=== PATIENT | male | born 1955 | race Caucasian/White ===

== ENCOUNTER 2017-03-10 11:04 | Outpatient (CLI) | payer MEDICAID ==
[~2017-03-10] VITALS: Ht 170.2 cm; Wt 63.6 kg
--- NOTE | ~2017-03-10 | HEMODYNAMI ---
PATIENT:STANISLAV LOMAS MEDICAL RECORD: [id number] : 59 LOCATION:DAilynCAT ADMISSION DATE: 03/10/17 Generatedon:03/10/201713:51 Patient name: STANISLAV LOMAS Patient #: [id number] SSN: : 1955 Date of study: 03/10/2017 Page: Of Hemodynamic Procedure Report Patient Data Patient Demographics Procedure consent was obtained First Name: STANISLAV Gender: Male Last Name: CESILIA : 1955 Patient #: [id number] Age: 61 year(s) Race: Additional ID: [id number] Contact details Address: [facility] [address] State: [place] City: [facility] Zip code: [address] Past Medical History Allergies: No known allergies Admission Admission Data Admission Date: 03/10/2017 Admission Time: 11:04 Procedure Procedure Types Cath Procedure Diagnostic Procedure LHC LHC w/Coronaries PCI Procedure Coronary Stent Initial Miscellaneous Procedures Moderate Sedation up to 30 minutes Procedure Description Procedure Date Procedure Date: 03/10/2017 Procedure Start Time: 13:25 Procedure End Time: 13:51 Procedure Staff Name Function Marshall Mauro MD Performing Physician Valerie Laurent RN Nurse Donny Little RT Monitor Annalisa Gomez RT Scrub Procedure Data Cath Procedure Fluoroscopy Diagnostic fluoroscopy Total fluoroscopy Time: 3.9 time: 3.9 min min Diagnostic fluoroscopy Total fluoroscopy dose: 448 dose: 448 mGy mGy Contrast Material Contrast Material Type Amount (ml) Isovue 300 80 Entry Location Entry Primary Successful Side Size Upsize Upsize Entry Closure Succes sful Closure Location (Fr) 1 (Fr) 2 (Fr) Remarks Device Remarks Femoral Right 5 Fr 6 Fr artery Short Estimated blood loss: 10 ml Diagnostic catheters Device Type Used For End Catheter Placement Cordis 5Fr JL 4.0 Procedure Catheter (MP) Cordis 5Fr 3DRC Catheter Procedure (MP) Cordis 5Fr Pigtail Procedure Catheter (MP) Procedure Complications No complications Procedure Medications Medication Administration Route Dosage Oxygen NC 2 l/min Heparin Flush Bag added to field 2 bags (1000units/500ml NS) Lidocaine 2% added to field 20 Radial Cocktail added to field 1 syringe (Verapomil 2mg/Nitro 400mcg/Heparin 1500units) Versed I.V. 1 mg Fentanyl I.V. 50 mcg Versed I.V. 1 mg Fentanyl I.V. 50 mcg Fentanyl I.V. 50 mcg Heparin Bolus I.V. 4000 units Integrilin (Bolus I.V. 5.6 ml 2mg/ml) Plavix P.O. 600 mg Hemodynamics Rest Heart Rate: 58 (bpm) Pressure Samples Time Site Value (mmHg) Purpose Heart Use Rate(bpm) 13:30 AO 128/67(90) Snapshot 54 13:34 LV 125/8,11 Snapshot 57 13:35 AO 161/60(92) Pullback 58 13:35 LV 129/10,12 Pullback 58 Gradients Valve Time Site 1 Site 2 Mean SEP/DFP Peak To Heart Use (mmHg) (sec/min) Peak Rate (mmHg) (bpm) Aortic 13:35 LV AO 0 8 0 58 129/10,12 161/60(92) Calculations Valve P-P Mean Valve Index Valve Source Name Gradient Area Flow (cm2) Aortic 0 0 0 0 Snapshots Pre Cath Intra NCS Post Cath Vital Signs Time Heart Resp SPO2 etCO2 [id number] NIBP (mmHg) Rhythm Pain Sedation Rate (ipm) (%) (mmHg) (mmHg) Status Level (bpm) 13:12:51 63 20 94 0 0 174/95(144) NSR 0 (11) 10(A) , No pain 13:17:18 60 16 94 0 0 186/77(163) NSR 0 (11) 10(A) , No pain 13:21:44 62 14 100 0 0 166/91(138) NSR 0 (11) 10(A) , No pain 13:26:06 57 16 100 0 0 144/75(117) NSR 0 (11) 9(A) , No pain 13:30:20 56 22 100 0 0 130/75(92) NSR 0 (11) 9(A) , No pain 13:34:30 57 19 100 0 0 128/70(87) NSR 0 (11) 9(A) , No pain 13:38:38 56 20 99 0 0 135/76(101) NSR 0 (11) 9(A) , No pain 13:42:50 59 18 99 0 0 129/72(89) NSR 0 (11) 10(A) , No pain 13:46:54 61 16 100 0 0 145/87(108) NSR 0 (11) 10(A) , No pain Medications Time Medication Route Dose Verified Delivered Reason Note s Effectiveness by by 13:12:02 Oxygen NC 2 l/min Marshall Valerie Per physician St. Lonnie Laurent RN, MD 13:12:10 Heparin Flush added 2 bags Marshall Marshall used for Bag to [facility] procedure (1000units/500ml field MD WELDON NS) 13:12:16 Lidocaine 2% added 20ml Marshall Marshall used for to vial [place] [facility] procedure field MD WELDON 13:12:22 Radial Cocktail added 1 Marshall Marshall used for (Verapomil to syringe [facility] procedure 2mg/Nitro field MD WELDON 400mcg/Heparin 1500units) 13:19:46 Versed I.V. 1 mg Marshall Valerie for sedation St. Lonnie Laurent RN, MD 13:19:52 Fentanyl I.V. 50 mcg Marshall Aaronca for sedation St. Lonnie Laurent RN, MD 13:21:42 Versed I.V. 1 mg Marshall Valerie for sedation St. Lonnie Laurent RN, MD 13:21:51 Fentanyl I.V. 50 mcg Marshall Santosecca for sedation St. Lonnie Laurent RN, MD 13:24:57 Fentanyl I.V. 50 mcg Marshall Aaronca for sedation St. Lonnie Laurent RN, MD 13:37:58 Heparin Bolus I.V. 4000 Marshall Aaronca for dose units St. Lonnie Laurent RN anticoagulation verified MD with dr diaz 13:39:21 Integrilin I.V. 5.6 ml Marshall Santosecca for wast ed (Bolus 2mg/ml) St. Lonnie Laurent RN antiplatelet 4.4 ml MD therapy 13:46:26 Plavix P.O. 600 mg Marshall Valerie for St. Lonnie Laurent RN antiplatelet therapy Procedure Log Time Note 12:45:23 Valerie Laurent RN sent for patient. Start room use. 12:46:14 Informed consent obtained and on chart 12:46:44 Diagnostic Cath status Elective 13:03:34 Time tracking: Regular hours 13:03:38 Plan of Care:Hemodynamics will remain stable., Cardiac rhythm will remain stable., Comfort level will be maintained., Respiratory function will remain adequate., Patient/ family verbilizes understanding of procedure., Procedure tolerated without complication., Recovers from procedure without complications.. 13:06:26 Patient received from Pre/Post Procedure Room to CCL 1 Alert and oriented. Tansferred to table in Supine position. 13:06:33 Patient arrived from Pre/Post Procedure Room to CCL 1. Patient remains on bed/stretcher for procedure. 13:06:35 Warm blankets applied, and raoul hugger turned on for patient comfort. 13:06:36 Correct patient and procedure confirmed by team. 13:11:00 ECG and BP/O2 sat monitors applied to patient. 13:11:46 Vital chart was started 13:12:02 Oxygen 2 l/min NC was administered by Valerie Laurent RN; Per physician; 13:12:10 Heparin Flush Bag (1000units/500ml NS) 2 bags added to field was administered by Marshall Mauro MD; used for procedure; 13:12:16 Lidocaine 2% 20ml vial added to field was administered by Marshall Mauro MD; used for procedure; 13:12:22 Radial Cocktail (Verapomil 2mg/Nitro 400mcg/Heparin 1500units) 1 syringe added to field was administered by Marshall Mauro MD; used for procedure; 13:17:10 Baseline sample Acquired. 13:17:15 Rhythm: sinus bradycardia 13:17:17 Full Disclosure recording started 13:17:34 H&P Date Dictated: 02/16/2017 Within 30 days and on chart., H&P Addendum completed by physician on day of procedure. (MUST COMPLETE FOR ALL OUTPATIENTS). 13:17:35 Pre-procedure instructions explained to patient. 13:17:35 Pre-op teaching completed and patient verbalized understanding. 13:17:37 Family in waiting room. 13:17:40 Patient NPO since Midnight. 13:17:41 Is the patient allergic to Iodine/contrast media? No. 13:17:45 Is patient on blood thinner?No 13:17:48 Patient diabetic? No. 13:17:50 Previous problem with sedation/anesthesia? No ? 13:18:30 Snore? Yes 13:18:31 Sleep apnea? No 13:18:32 Deviated septum? No 13:18:33 Opens mouth fully? Yes 13:18:33 Sticks out tongue? Yes 13:18:43 Airway obstruction? No ? 13:18:49 Dentures? Yes IN 13:18:55 Pre procedure: right dorsailis pedis pulse 1+ Palpable, but thready & weak; easily obliterated 13:18:57 Modified Lew's test Ulnar < 7 seconds 13:19:00 Patient pain scale 0/10 ?. 13:19:04 IV patent on arrival in left forearm with 0.9% NaCl at [facility]. 13:19:06 Lab results completed and on chart. 13:19:09 Right Radial & Right Groin area was prepped with chlora-prep and draped in sterile fashion 13:19:10 Alarms reviewed by R. N. 13:19:10 Sharps counted by scrub and verified by R.N. 13:19:12 --------ALL STOP TIME OUT------ 13:19:12 Final Timeout: patient, procedure, and site verified with staff and physician. All members of the team are in agreement. 13:19:14 Right Radial & Right Groin site verified by team. 13:19:18 Physical assessment completed. ASA score P 2 - A patient with mild systemic disease as per Marshall Mauro MD. 13:19:20 Sedation plan: IV Moderate Sedation Versed, Fentanyl 13:19:46 Versed 1 mg I.V. was administered by Valerie Laurent RN; for sedation; 13:19:52 Fentanyl 50 mcg I.V. was administered by Valerie Laurent RN; for sedation; 13:21:42 Versed 1 mg I.V. was administered by Valerie Laurent RN; for sedation; 13:21:51 Fentanyl 50 mcg I.V. was administered by Valerie Laurent RN; for sedation; 13:24:45 Use device set Radial Dx 13:24:50 Tegaderm 4 x 4 opened to sterile field. 13:24:52 Acist Hand Control opened to sterile field. 13:24:52 Acist Manifold opened to sterile field. 13:24:53 Acist Syringe opened to sterile field. 13:24:54 Medline Cath Pack opened to sterile field. 13:24:54 Bag Decanter opened to sterile field. 13:24:55 St Ruperto 260cm J .035 wire opened to sterile field. 13:24:57 Fentanyl 50 mcg I.V. was administered by Valerie Laurent RN; for sedation; 13:25:03 Procedure started. 13:25:11 Local anesthetic to right radial artery with Lidocaine 2% by Marshall Mauro MD.INITIAL ACCESS ONLY 13:27:16 Unable to gain radial access due to arterial spasm, moving to femoral approach. 13:27:41 Terumo 5Fr [place] Sheath opened to sterile field. 13:27:44 Use device set Multipack Set 13:27:46 Diagnostic Infinity 5Fr Multipack catheter opened to sterile field. 13:28:22 Local anesthetic to right femoral artery with Lidocaine 2% by Marshall Mauro MD.ADDITIONAL ACCESS 13:28:53 A 5 Fr sheath was inserted into the Right Femoral artery 13:29:14 Baseline sample Acquired. 13:29:48 A Cordis 5Fr JL 4.0 Catheter (MP) was advanced over the wire and used for Procedure. 13:30:17 LCA angiography performed. 13:31:25 Catheter removed. 13:31:39 A Cordis 5Fr 3DRC Catheter (MP) was advanced over the wire and used for Procedure. 13:33:31 RCA angiography performed. 13:33:32 Catheter removed. 13:33:39 A Cordis 5Fr Pigtail Catheter (MP) was advanced over the wire and used for Procedure. 13:34:31 Terumo 6Fr [place] Sheath opened to sterile field. 13:34:31 Ramirez Brandon 300cm 0.014 guide wire opened to sterile field. 13:34:31 CRITICAL TECHNOLOG[employer] BasixCompak Inflation Kit opened to sterile field. 13:35:14 LV angiography performed. 13:35:15 LV gram done using PATEL 13:35:20 EF : 55 % 13:35:25 LV hemodynamics recorded. 13:35:29 Injector settings: Ml/sec: 7, Volume: 15, 13:35:32 Catheter removed. 13:35:50 Sheath upsized to a 6 Fr Short. 13:35:58 ACC PCI Site: pCirc has 80% stenosis. 13:36:00 ACC Pre-intervention REZA Flow is 3. 13:36:10 6 Fr EBU 3.5 guide catheter was inserted over the wire 13:36:53 Brandon wire advanced. 13:37:58 Heparin Bolus 4000 units I.V. was administered by Valerie Laurent RN; for anticoagulation; dose verified with dr diaz 13:39:21 Integrilin (Bolus 2mg/ml) 5.6 ml I.V. was administered by Valerie Laurent RN; for antiplatelet therapy; wasted 4.4 ml 13:39:27 Wire advanced across lesion. 13:41:09 Medtronic Launcher 6Fr EBU 3.5 guide catheter opened to sterile field. 13:43:16 Inflation Number: 1 A Medtronic Integrity 3.0 X 18 stent was prepped and advanced across the Prox CX. The stent was deployed at 12 MANDIE for 0:45 (min:sec). 13:43:54 ACC Post-intervention REZA Flow is 3. 13:43:57 Stent catheter was removed intact over wire. 13:43:58 Wire removed. 13:43:58 Guide catheter removed. 13:44:30 Cordis 6Fr Exoseal opened to sterile field. 13:44:34 Procedure ended.(Physican Out) 13:45:29 Fluoroscopy time 03.90 minutes. 13:45:33 Fluoroscopy dose: 448 mGy 13:45:33 Flurop Dose total: 448 13:45:37 Contrast amount:Isovue 300 80ml. 13:45:38 Sharps counted by scrub and verified by R.N. 13:45:40 Insertion/operative site no bleeding no hematoma. 13:45:43 Post-op/insertion site Right Femoral artery dressed using a 4 x 4 and Tegaderm. 13:45:50 Post-op/insertion site Right Radial artery dressed using a Bandaid. 13:45:52 Post Procedure Pulses reassessed and unchanged 13:45:54 Post-procedure physical assessment completed. ASA score P 2 - A patient with mild systemic disease as per Marshall Mauro MD. 13:45:58 Post procedure rhythm: unchanged. 13:46:00 Estimated blood loss: 10 ml 13:46:03 Post procedure instruction explained to patient.Patient verbalizes understanding. 13:46:04 Patient needs reinforcement of post procedure teaching. 13:46:17 Procedure type changed to Cath procedure, Diagnostic procedure, LHC, LHC w/Coronaries, PCI procedure, Coronary Stent Initial, Miscellaneous Procedures, Moderate Sedation up to 30 minutes 13:46:19 Procedure and supply charges have been captured, reviewed, submitted and are correct. 13:46:21 Procedure Complication : No complications 13:46:26 Plavix 600 mg P.O. was administered by Valerie Laurent RN; for antiplatelet therapy; 13:50:49 Vital chart was stopped 13:50:50 See physician's report for complete and final results. 13:50:53 Report given to Pre/Post Procedure Room. 13:50:58 Patient transfered to Pre/Post Procedure Room with Stretcher. 13:51:02 Procedure ended. 13:51:02 Full Disclosure recording stopped 13:51:06 End room use (Document Last) Intervention Summary Intervention Notes Time ActionType Lesion and Equipment Action# Pressure Duration Attributes Used 13:43:16 Place stent Prox CX Medtronic 1 12 00:45 Integrity 3.0 X 18 stent Device Usage Item Name Manufacture Quantity Catalog Hospital Part Current Minimal Lot# / Number Charge Number Stock Stock Serial# Code Tegaderm 4 3M 1 [id number] 330266 145365 5 x 4 Acist Hand Acist 1 60796 744202 180384 205065 5 Control Medical Systems Inc Acist Acist 1 99523 650431 642123 242757 5 Manifold Medical Systems Inc Acist Acist 1 55329 038478 521173 902407 20 Syringe Medical Systems Inc Medline Cardinal 1 [id number] 492866 33424 500118 5 Cath Pack Health Bag Microtek 1 2001S 086708 79080 827933 [address] Ru[address]to [address] Ruperto 1 333000 118598 117246 052738 30 260cm J .035 wire Terumo 5Fr Terumo 1 [id number] 867156 143434 842213 40 [place] Sheath Diagnostic Cardinal 1 [id number] 018252 43582 771607 30 Infinity Health 5Fr Multipack catheter Cordis 5Fr Cardinal 1 312226 5 JL 4.0 Health Catheter (MP) Cordis 5Fr Cardinal 1 911564 5 3DRC Health Catheter (MP) Cordis 5Fr Cardinal 1 677148 5 Pigtail Health Catheter (MP) Terumo 6Fr Terumo 1 [id number] 911372 947070 376000 40 [place] Sheath Ramirez Ramirez 1 [id number] 006391 715754 113317 1 Brandon Vascular 300cm 0.014 guide wire [facility] 1 [id number] 933996 105680 460041 15 BasixCompak Medical Inflation Kit Medtronic Medtronic 1 [id number] 183282 37540 667691 3 Launcher 6Fr EBU 3.5 guide catheter Medtronic Medtronic 1 [id number] 942229 276244 3 [id number] Integrity 3.0 X 18 stent Cordis 6Fr Cardinal 1 EX600 761440 124739 727868 10 [facility] Luc[employer] Signature Audit [place] Stage Time Signature Unsigned Intra-Procedure 03/10/2017 Donny Little 1:51:25 PM RT(R) Signatures Monitor : Donny Little RT Signature : Date : Time : [place] [id number] [facility] [place] [address]
[~2017-03-10 11:04] MED LIST: BRILINTA90 MG PO; LISINOPRIL10 MG PO
[2017-03-10 12:46] VITALS: BP 160/89; Ht 170.2 cm; Wt 63.6 kg
[2017-03-10 12:49] LABS: CALC OSMOLALITY 278 mosm/kg (275-300); CALCIUM 9.6 mg/dL (8.5-10.1); CARBON DIOXIDE 28.6 mmol/L (21.0-32.0); CHLORIDE - SERUM 103 mmol/L (98-107); CREATININE - SERUM 0.9 mg/dL (0.6-1.3); GLUCOSE 82 mg/dL (74-106); POTASSIUM - SERUM 4.4 mmol/L (3.5-5.1); SODIUM 139 mmol/L (136-145); UREA NITROGEN 18 mg/dL (7-18); eGFR NON AFRICAN AMERICAN > 90 mL/min (90-120)
[2017-03-10 12:56] LABS: BASOPHILS 1.1 % (0-2); HEMATOCRIT 46.2 % (42.0-54.0); HEMOGLOBIN 15.4 g/dL (13.5-17.5); LYMPHOCYTES 36.1 % (15-50); MCH 30.6 pg (26.0-34.0); MCHC 33.3 g/dL (31.0-37.0); MCV 91.8 fL (80.0-100.0); MEAN PLATELET VOLUME 12.3 fL (7.4-10.4); MONOCYTES 5.1 % (2-11); NEUTROPHILS 51.7 % (40-80); PLATELET COUNT 220 10x3/uL (130-400); RBC 5.03 10x6/uL (4.20-6.10); RDW 14.2 % (11.5-14.5); WBC 6.6 10x3/uL (4.8-10.8)
[2017-03-10] MEDS ORDERED: PLAVIX75 MG PO (13:56)
--- NOTE | 2017-03-10 14:11 | NUR ---
RIGHT GROIN CDI, NO HEMATOMA OR BLEEDING AT SITE, SOFT TO TOUCH
--- NOTE | 2017-03-10 14:45 | NUR ---
SMALL AMOUNT OF BLOOD ON DRESSING- PRESSURE HELD FOR 3 MIN-AREA STILL SOFT TO TOUCH, DENIES PAIN
--- NOTE | 2017-03-10 16:05 | NUR ---
1555- FEMSTOP PLACED TO RT GROIN DUE TO SATURATION OF GUAZE DRESSING. NO HEMATOMA NOTED. 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 V/S/S. COMFORT MEASURES GIVEN, LIGHTS TURNED DOWN, CALL LIGHT ON CHEST. ENCOURAGED TO CALL FOR ANY NEEDS. WILL CONTINUE TO MONITOR GROIN SITE.
--- NOTE | 2017-03-10 16:07 | NUR ---
1610- PT WITH FEMSTOP TO RT GROIN, NO ADDITIONAL BLEEDING NOTED. PT WITH DISTAL RT PEDAL PULSE, FEMSTOP ONLY TO GENTLE PRESSURE. NO HEMATOMA NOTED. PT DENIES ANY DISCOMFORT AND EXPRESSED NO ADDITIONAL NEEDS AT THIS TIME. CALL LIGHT ON CHEST, PT RESTING. 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 WILL CONT TO MONITOR.
--- NOTE | 2017-03-10 17:50 | NUR ---
IV D'C WITH CATH TIP INTACT, WRITTEN AND VERBAL INSTRUCTIONS GIVEN TO PT AND MOM. CLEAN DRESSING APPLIED TO RIGHT GROIN, CONTINUES NO HEMATOMA OR BLEEDING. DENIES FURTHUR NEEDS
--- NOTE | 2017-03-11 12:53 | OP ---
PATIENT NAME: STANISLAV LOMAS MEDICAL RECORD: [id number] :59 LOCATION:D.CAT ADMISSION DATE: SURGEON: YONI HOWARD MD DATE OF OPERATION: 03/10/2017 PROCEDURE: Left heart catheterization, selective coronary angiography, right femoral artery approach. CATHETERS: A 5-Guatemalan sheath, 5/4 left and right Ai, 5/4 pig. The procedure was tolerated. The patient returned to the mercado, sheath removed. ExoSeal device was placed. FINDINGS: Left ventriculography in 30-degree PATEL view, normal wall motion, normal systolic function. CORONARY ANATOMY: Left main: Left main is free of disease. LAD: Free of disease in the diagonal system. CIRCUMFLEX: There is a previously described 80% stenosis. This appears worse at this point at 80%. RIGHT CORONARY ARTERY: Previous stenting is widely patent. IMPRESSION: Progression of circumflex disease, no evidence of restenosis. PLAN: For intervention of the circumflex momentarily. DESCRIPTION OF PROCEDURE: A 5-Guatemalan sheath was changed for a 6-Guatemalan sheath, XB LAD 3.5 guiding catheter provided good guide catheter support followed by a 300 cm [place] XT wire was placed across the totally occluded circumflex down this portion of this vessel. Stent deployed was a 3.0 x 18 mm Integrity nondrug-eluting stent up to 12 atmospheres for 45 seconds. Final injection shows excellent resolution of 80% stenosis, no significant residual. REZA flow was 3 throughout the procedure. Sheath was closed with ExoSeal device. TRANSINT:[id number] Voice Confirmation ID: [id number] DOCUMENT ID: [id number] YONI HOWARD MD at 1253 CC: [id number] DICTATION DATE: 03/10/17 1350 WIRE SPIRAL BINDER: 03/11/17 0109 DEP CLI 03/10/17 [facility] [address] [facility]901
== END 2017-03-10 18:00 | disposition home or self-care (01) ==
LOC: D.CATH 11:04
PROVIDERS: Internal Medicine Interventional Cardiology
DX: I25.119 Atherosclerotic heart disease of native coronary artery with unspecified angina pectoris (principal); Z01.812 Encounter for preprocedural laboratory examination; Z95.5 Presence of coronary angioplasty implant and graft

== ENCOUNTER → 2018-12-14 08:06 | Outpatient (CLI) | payer MEDICAID ==
[2017-03-10 12:46] VITALS: BMI 21.9
[~2018-12-14 08:06] MED LIST changes: +PLAVIX75 MG PO
--- NOTE | 2018-12-17 10:39 | EC ---
PATIENT:STANISLAV LOMAS DATE OF SERVICE: 12/14/18 SEX: M MEDICAL RECORD: [id number] DATE OF : 59 [facility] AGE OF PATIENT: 63 ADMISSION DATE: 12/14/18 REFERRING PHYSICIAN: INTERPRETING PHYSICIAN: YONI HOWARD MD ECHOCARDIOGRAM REPORT ECHO CHARGES 4 ECHO COMPLETE Date: 12/14/18 CLINICAL DIAGNOSIS: CAD HX HTN/COPD/CAD ECHOCARDIOGRAPHIC MEASUREMENTS (adult normal given) AC root (d.<3.7cm) 4.2 cm LV Septum d (<1.2 cm> 1.8 cm Valve Excursion 1.9 cm LV Septum (systole) 2.0 cm Left Atria (s.<4.0cm> 3.7 cm LVPW d(<1.2cm) 1.8 cm RV (d.<2.3cm) 3.5 cm LVPW (sytole) 2.2 cm LV diastole(<5.6CM) 4.2 cm MV E-F(>70mm/sec) cm LV systole 2.5 cm LVOT Diameter 1.9 cm MV exc.(>10mm) 1.2 cm Est.ejection fraction (50-75%) % DOPPLER: LVIT cm/sec A 94.0 cm/sec E 68.0 cm/sec LA cm/sec RVSP 18 mmHg LVOT 86 cm/sec AOP1/2T m/s Asc. Ao 115 cm/sec RVOT 85 cm/sec RA cm/sec PA 90 cm/sec AV Gradient Peak 5.33 mmHg AV Mean 2.58 mmHg AV Area 2.1 cm MV Gradient Peak 3.15 mmHg MV Mean 1.25 mmHg MV Area cm COMMENTS: Marine Engine Mechanic: 2 BRENDA SABA Sports Coordinator: 3 Dr. Mauro TAPE# pacs Pericardial Effusion N DATE OF SERVICE: Adequate 2D, color flow, spectral Doppler, and M-Mode Mild LVH. LV internal dimension is normal. Wall motion is normal. EF is greater than or equal to 55%. Aortic valve is tricuspid. No evidence of stenosis by Doppler interrogation. Left atrium is normal. Mitral valve shows no prolapse. Trace MR. Right-sided chamber is grossly normal. Trace TR. TRANSINT:[id number] Voice Confirmation ID: [id number] DOCUMENT ID: [id number] ECHOCARDIOGRAM REPORT [id number] CESILIA,STANISLAV YONI HOWARD MD at 1039 CC: [id number] DICTATION DATE: 12/15/18 1158 VACUUM FURNACE OPERATOR: 12/15/18 1211 DEP CLI 12/14/18 [facility] [address] [place] [address]
== END | disposition home or self-care (01) ==
LOC: D.HCCARDIO 08:06
PROVIDERS: ATTEND Internal Medicine Interventional Cardiology
DX: I25.10 Atherosclerotic heart disease of native coronary artery without angina pectoris (principal)

== ENCOUNTER → 2019-02-06 13:07 | Outpatient (CLI) | payer MEDICAID ==
[2017-03-10 12:46] VITALS: BMI 21.9
== END | disposition home or self-care (01) ==
LOC: D.CT 13:07
PROVIDERS: ATTEND Family Medicine
DX: R91.8 Other nonspecific abnormal finding of lung field (principal)

== ENCOUNTER → 2019-04-02 14:30 | Outpatient (CLI) | payer OTHER ==
[2017-03-10 12:46] VITALS: BMI 21.9
== END | disposition home or self-care (01) ==
LOC: D.RT 14:30
PROVIDERS: ATTEND Pediatrics
DX: Z02.71 Encounter for disability determination (principal)

== ENCOUNTER 2019-06-21 07:18 | Day surgery (SDC) | payer MEDICAID ==
[2017-03-10 12:46] VITALS: Wt 61.2 kg
[2019-06-20 15:12] LABS: HEMATOCRIT 41.8 % (42.0-54.0); HEMOGLOBIN 14.2 g/dL (13.5-17.5); MCH 30.5 pg (26.0-34.0); MCV 89.7 fL (80.0-100.0); RBC 4.66 10x6/uL (4.20-6.10); RDW 14.7 % (11.5-14.5); WBC 6.1 10x3/uL (4.8-10.8)
[~2019-06-21 07:18] MED LIST changes: +TOPROL XL100 MG PO
--- NOTE | 2019-06-21 11:46 | NUR ---
1046-REC'D FROM SURGERY.AWAKE AND ALERT,DENIES PAIN. VSS. IV PATNET AT KVO. AT BEDSIDE,CL IN EASY REACH.
--- NOTE | 2019-06-21 11:47 | NUR ---
1110-FULL LIQUID TRAY TO ROOM.AKUAS COMPLAINTS.VSS.
--- NOTE | 2019-06-21 11:47 | NUR ---
1100-TOLERATED TO RESTROOM AND URINATED WITH SUCCESS.
--- NOTE | 2019-06-21 11:48 | NUR ---
1135-DISCHARGE CRITERIA MET. REMOVED IV FROM LEFT HAND WITH CATH INTACT,DISPOSED INTO SHARPS,COVERED SITE WITH BANDAID. REVIEWED DISCHARGE INSTRUCTIONS WITH PT AND SPOUSE.VERBALIZED UNDERSTANDING WITHOUT QUESTIONS OR CONCERNS.ESCORTED OUT VIA W/C WITH SPOUSE AWAITING TO DRIVE HOME
--- NOTE | 2019-06-21 12:09 | OP ---
PATIENT NAME: STANISLAV LOAMS MEDICAL RECORD: [id number] :59 LOCATION:[facility] ADMISSION DATE: SURGEON: DHRUV GONZALEZ MD DATE OF OPERATION: 06/21/2019 SURGEON: Dhruv Gonzalez MD ANESTHESIA: TIVA by Rasta Brown CRNA DIAGNOSIS: Urge urinary incontinence. PROCEDURE: Cystoscopy and intravesical Botox injection 100 units. FINDINGS: On cystoscopy, no urethral strictures. Nonobstructive lateral lobes of the prostate. Some bladder neck stenosis. Trabeculated bladder with inflammation. No bladder tumors. Single ureteral orifices bilaterally. BLOOD LOSS: None. CLINICAL HISTORY: This is a 63-year-old male, who has a chief complaint of urge urinary incontinence. I first saw him in 2017 for this. At that time, he was given Myrbetriq, which did work, but he could not afford the medication. Then, I prescribed oxybutynin, which did work. Digital rectal examination revealed a 40-gram prostate. His postvoid residual was 0 mL. He is a poor historian. There is nocturia, and his notices that he wets his pants. At the time of his most recent office visit, I checked his urine and it showed no signs of infection. His postvoid residual was 2 mL. He comes today for cystoscopy and intravesical Botox injection. He is not allergic to any medications. He was given Ancef armor reconnaissance specialist to the OR. DESCRIPTION OF PROCEDURE: The patient was given IV sedation. He was placed into the lithotomy position and prepped and draped. A 21-Irish cystoscope with 30-degree lens was used for visualization. The prostatic urethra was nonobstructive. There was a tight bladder neck; however. Going into the bladder, the bladder was mildly trabeculated. The bladder mucosa is very inflamed, which suggests possible interstitial cystitis. At 10 different locations, we gave 1 mL of Botox solution. Each milliliter of Botox solution had 10 units of Botox dissolved in it. Therefore, he has a total of 100 units of Botox given into the bladder muscle. We spared the ureteral orifices and the trigonal region from the injections. At the end of the procedure, the bladder was emptied through the cystoscope sheath and the scope was removed. I will see the patient in followup in 2 weeks' time. If he has issues with voiding after the Botox injection, he may require opening up the bladder neck with either an incision of the bladder neck or the UroLift procedure. TRANSINT:[id number] Voice Confirmation ID: [id number] DOCUMENT ID: [id number] OPERATIVE REPORT [id number] STANISLAV LOMAS, DHRUV Azar MD at 1209 CC: [id number] DICTATION DATE: 06/21/19 1050 PIECE PRESSER: 06/21/19 1200 [facility] [place] 06/21/19 [id number] [place] [address]
== END 2019-06-21 11:35 | disposition home or self-care (01) ==
LOC: D.OPS 07:18 → D.PAN 10:00 → D.OPS 10:00
PROVIDERS: Anesthesiology; ATTEND Urology
DX: N39.41 Urge incontinence (principal)

== ENCOUNTER 2019-08-04 10:32 | Emergency (ER) | payer MEDICAID ==
[~2019-08-04] VITALS: Ht 167.6 cm; Wt 63.6 kg
[2019-08-04 10:50] VITALS: Ht 167.6 cm; Wt 63.6 kg
[2019-08-04] MEDS ORDERED: MICARDIS40 MG PO (10:52)
[2019-08-04] MEDS ORDERED: KLONOPIN1 MG PO (10:53)
[2019-08-04] MEDS ORDERED: HCTZ25 MG PO (10:53)
[2019-08-04 11:29] LABS: BASOPHILS 0.8 % (0-2); EOSINOPHILS 3.9 % (0-7); HEMOGLOBIN 15.3 g/dL (13.5-17.5); IMMATURE GRANULOCYTES 0.4 % (0-5); LYMPHOCYTES 20.2 % (15-50); MCH 30.8 pg (26.0-34.0); MCHC 32.6 g/dL (31.0-37.0); MCV 94.6 fL (80.0-100.0); MEAN PLATELET VOLUME 13.2 fL (7.4-10.4); MONOCYTES 5.9 % (2-11); NEUTROPHILS 68.8 % (40-80); PLATELET COUNT 202 10x3/uL (130-400); RBC 4.97 10x6/uL (4.20-6.10); RDW 14.3 % (11.5-14.5); WBC 10.8 10x3/uL (4.8-10.8)
[2019-08-04 11:41] LABS: CALC OSMOLALITY 279 mosm/kg (275-300); CALCIUM 9.3 mg/dL (8.5-10.1); CARBON DIOXIDE 30.3 mmol/L (21.0-32.0); CHLORIDE - SERUM 104 mmol/L (98-107); GLUCOSE 84 mg/dL (74-106); POTASSIUM - SERUM 5.3 mmol/L (3.5-5.1); SODIUM 140 mmol/L (136-145); UREA NITROGEN 17 mg/dL (7-18); eGFR NON AFRICAN AMERICAN 81 mL/min (90-120)
[2019-08-04 11:48] LABS: APTT 28.3 SECONDS (22.8-39.4); PROTIME 12.7 SECONDS (11.6-15.0)
[2019-08-04 11:59] LABS: ALBUMIN 4.2 g/dL (3.4-5.0); ALKALINE PHOSPHATASE 76 U/L (46-116); ALT (SGPT) 34 U/L (10-68); BILIRUBIN - TOTAL 0.61 mg/dL (0.2-1.3); CKMB 0.5 U/L (0.0-3.6); CREATINE KINASE 78 UL (21-232); MAGNESIUM - SERUM 2.2 mg/dL (1.8-2.4); PROTEIN - SERUM 7.7 g/dL (6.4-8.2)
[2019-08-04 12:00] LABS: TROPONIN-I < 0.017 ng/mL (0.000-0.060)
[2019-08-04 12:23] LABS: THYROID STIMULATING HORMONE 1.94 uIU/mL (0.36-3.74)
[2019-08-04 13:40] VITALS: BP 128/77
== END 2019-08-04 13:41 | disposition home or self-care (01) ==
LOC: EDBD 10:32 → D.ER 10:32
PROVIDERS: Family Medicine
DX: R55 Syncope and collapse (principal); I11.0 Hypertensive heart disease with heart failure; I50.9 Heart failure, unspecified; I25.10 Atherosclerotic heart disease of native coronary artery without angina pectoris; Z95.5 Presence of coronary angioplasty implant and graft; Z72.0 Tobacco use

== ENCOUNTER 2019-08-10 15:32 | Inpatient (IN) | payer MEDICAID ==
[~2019-08-10] VITALS: Ht 167.6 cm; Wt 57.7 kg
[~2019-08-10 15:32] MED LIST changes: +HCTZ25 MG PO; +KLONOPIN1 MG PO; +MICARDIS40 MG PO
[2019-08-10] MEDS ORDERED: CATAPRES0.1 MG PO (16:02)
[2019-08-10 16:07] VITALS: BP 197/81; Ht 167.6 cm; Wt 57.7 kg
[2019-08-10 16:20] LABS: EOSINOPHILS 4.1 % (0-7); HEMATOCRIT 43.2 % (42.0-54.0); HEMOGLOBIN 14.2 g/dL (13.5-17.5); IMMATURE GRANULOCYTES 0.1 % (0-5); LYMPHOCYTES 33.9 % (15-50); MCH 30.9 pg (26.0-34.0); MCHC 32.9 g/dL (31.0-37.0); MCV 94.1 fL (80.0-100.0); MEAN PLATELET VOLUME 13.3 fL (7.4-10.4); MONOCYTES 5.5 % (2-11); NEUTROPHILS 55.4 % (40-80); PLATELET COUNT 201 10x3/uL (130-400); RBC 4.59 10x6/uL (4.20-6.10); RDW 13.7 % (11.5-14.5); WBC 7.1 10x3/uL (4.8-10.8)
[2019-08-10 16:29] LABS: CALC OSMOLALITY 291 mosm/kg (275-300); CALCIUM 8.8 mg/dL (8.5-10.1); CARBON DIOXIDE 33.3 mmol/L (21.0-32.0); CHLORIDE - SERUM 108 mmol/L (98-107); GLUCOSE 88 mg/dL (74-106); POTASSIUM - SERUM 4.5 mmol/L (3.5-5.1); SODIUM 147 mmol/L (136-145); UREA NITROGEN 14 mg/dL (7-18); eGFR NON AFRICAN AMERICAN 81 mL/min (90-120)
[2019-08-10 16:35] LABS: ALKALINE PHOSPHATASE 74 U/L (46-116); ALT (SGPT) 44 U/L (10-68); PROTEIN - SERUM 7.3 g/dL (6.4-8.2)
--- NOTE | 2019-08-10 16:43 | MORECARE ---
CASE MANAGEMENT DISCHARGE SUMMARY PATIENT: STANISLAV LOMAS MORGAN UNIT: [id number] ADM DATE: 08/10/19 AGE: 63 : 59 SEX: M ROOM/BED: D.2122 AUTHOR: LAUREN MOSLEY PHYSICIAN: REFERRING PHYSICIAN: SHAVON CABA MD DATE OF SERVICE: 08/10/19 Discharge Plan Patient Name: STANISLAV LOMAS [facility] [facility] 1955 Planned Disposition: Home Anticipated Discharge Date: Discharge Date: Expected LOS: Initial Reviewer: [email or web address] Initial Review Date: 08/10/2019 Generated: 08/10/19 5:43 pm Patient Name: STANISLAV LOMAS Page [id number] at 1643 All edits/amendments must be made on the electronic document DICTATION DATE: 08/10/191642 HOUSEKEEPING AID: ALVA 08/10/191642 RPT#: [id number] DC DATE: STATUS: ADM IN [facility] [address] [place] [address] END OF REPORT
--- NOTE | 2019-08-10 16:52 | MORECARE ---
CASE MANAGEMENT DISCHARGE SUMMARY PATIENT: STANISLAV LOMAS UNIT: [id number] ADM DATE: 08/10/19 AGE: 63 : 59 SEX: M ROOM/BED: D.9652 AUTHOR: MELANY,DOC PHYSICIAN: REFERRING PHYSICIAN: SHAVON CABA MD DATE OF SERVICE: 08/10/19 Discharge Plan Patient Name: STANISLAV LOMAS Facility: [facility]:[place] : 1955 Planned Disposition: Home Anticipated Discharge Date: Discharge Date: Expected LOS: Initial Reviewer: [email or web address] Initial Review Date: 08/10/2019 Generated: 08/10/19 5:52 pm Comments DCP- Discharge Planning Updated by [email or web address]: Isaac Yates on 08/10/19 3:[address] Patient Name: STANISLAV LOMAS Admission Status: Urgent Accout number: [id number] Admission Date: 08-10-2019 : 1955 Admission Diagnosis: Attending: SHAVON CABA Current LOS: 1 Anticipated DC Date: Planned Disposition: Home Primary Insurance: [employer] [facility] Discharge Planning Comments: CM RECEIVED DISCHARGE PLANNING ORDER, MET WITH PT IN ROOM TO DISCUSS DISCHARGE PLANNING AND NEEDS. PT REPORTS LIVING AT HOME INDEPENDENTLY WITH HIS MOM AND DAD. PT HAS BLOOD PRESSURE MACHINE WITH NO MEDICAL EQUIPMENT PROVIDER PREFERENCE. PT HAS NO OUTSIDE SERVICES ASSISTING IN THE HOME. CM DISCUSSED AVAILABILITY OF HOME HEALTH, REHAB SERVICES AND MEDICAL EQUIPMENT. PT DENIES DISCHARGE NEEDS, REPORTS HIS MOM WILL PICK HIM UP FOR DISCHARGE HOME. PT PLANS TO DISCHARGE HOME WITH HIS PARENTS. PT HAS NO ANTICIPATED DISCHARGE NEEDS. FAMILY TO TRANSPORT HOME AT DISCHARGE. CM TO FOLLOW AND ASSIST IF NEEDED. Chief Cook: Isaac Yates DCPIA - Discharge Planning Initial Assessment Updated by [email or web address]: Isaac Yates on 08/10/19 4:46 pm * Is the patient Alert and Oriented? Yes * How many steps to enter\exit or inside your home? * PCP DR. AVILES * Pharmacy [facility], [place] * Preadmission Environment Home with Family * ADLs Independent * Equipment Other * Other Equipment BLOOD PRESSURE MACHINE NO MEDICAL EQUIPMENT PROVIDER PREFERENCE * List name and contact numbers for known caregivers / representatives who currently or will assist patient after discharge: JEYSON LOMAS, MOTHER, * Verbal permission to speak to the caregivers and representatives has been obtained from the patient. N/A * Community resources currently utilized Other * Please name any agencies selected above. NONE * Additional services required to return to the preadmission environment? No * Can the patient safely return to the preadmission environment? Yes * Has this patient been hospitalized within the prior 30 days at any hospital? No Last DP export: 08/10/19 3:43 Patient Name: STANISLAV LOMAS Page [id number] at 1652 All edits/amendments must be made on the electronic document DICTATION DATE: 08/10/191651 PLASTIC MIXER: ALVA 08/10/191651 RPT#: [id number] DC DATE: STATUS: ADM IN [facility] [address] [place] [address] END OF REPORT
--- NOTE | 2019-08-10 19:31 | NUR ---
RECEIVED LAYING IN BED WITH EYES OPEN AND TV ON. ALERT AND ORIENTED X4. UP AD CHUYITA TO B/R. TELEMETRY IN PLACE. IV TO RIGHT FA WITH 1/2 NS @ 50CC/HR. DENIES ANY NEEDS AT THIS TIME.
[2019-08-10 20:00] VITALS: BP 182/88
[2019-08-10 22:34] LABS: APPEARANCE CLEAR (CLEAR); BILIRUBIN NEGATIVE (NEGATIVE); COLOR YELLOW (YELLOW); GLUCOSE NEGATIVE (NEGATIVE); KETONE NEGATIVE (NEGATIVE); NITRITE NEGATIVE (NEGATIVE); PROTEIN NEGATIVE (NEGATIVE); UROBILINOGEN NORMAL (NORMAL)
[2019-08-11] VITALS (8 sets, daily range): BP systolic 108–205; BP diastolic 60–105
[2019-08-11 05:28] LABS: BASOPHILS 0.6 % (0-2); EOSINOPHILS 4.3 % (0-7); HEMOGLOBIN 13.1 g/dL (13.5-17.5); IMMATURE GRANULOCYTES 0.3 % (0-5); LYMPHOCYTES 37.7 % (15-50); MCH 30.5 pg (26.0-34.0); MCHC 32.8 g/dL (31.0-37.0); MCV 93.2 fL (80.0-100.0); MEAN PLATELET VOLUME 13.5 fL (7.4-10.4); MONOCYTES 7.9 % (2-11); NEUTROPHILS 49.2 % (40-80); PLATELET COUNT 177 10x3/uL (130-400); RBC 4.29 10x6/uL (4.20-6.10); RDW 13.8 % (11.5-14.5); WBC 7.2 10x3/uL (4.8-10.8)
[2019-08-11 05:53] LABS: CALC OSMOLALITY 277 mosm/kg (275-300); CALCIUM 8.2 mg/dL (8.5-10.1); CARBON DIOXIDE 26.6 mmol/L (21.0-32.0); CHLORIDE - SERUM 106 mmol/L (98-107); CREATININE - SERUM 0.9 mg/dL (0.6-1.3); GLUCOSE 82 mg/dL (74-106); MAGNESIUM - SERUM 1.8 mg/dL (1.8-2.4); PHOSPHOROUS 2.8 mg/dL (2.5-4.9); SODIUM 140 mmol/L (136-145); UREA NITROGEN 13 mg/dL (7-18); eGFR NON AFRICAN AMERICAN > 90 mL/min (90-120)
[2019-08-11 05:54] LABS: POTASSIUM - SERUM 3.8 mmol/L (3.5-5.1)
--- NOTE | 2019-08-11 07:51 | NUR ---
ALERT AND ORIENTED. UP AB CHUYITA. RIGHT FA WITH .5 NS AT 75. TELEMERTY SHOWS SR 65. NO NEEDS VOICED
--- NOTE | 2019-08-11 12:35 | NUR ---
ORTHOSTATIC B/P LYING 108/30, SITTING 153/86, STANDING 179/90 NO NEEDS VOICED
--- NOTE | 2019-08-11 13:44 | NUR ---
I have reviewed this patient and I concur with the Shift Assessment completed by the Licensed Practical Nurse today this shift.
--- NOTE | 2019-08-11 14:13 | NUR ---
BLOOD INFUSNG WELL WITHOUT ANY ADVERSE SIDE EFFECTS. V/S STABLE. TELEMERTY SHOWS SR. WILL MONITOR
--- NOTE | 2019-08-11 19:26 | NUR ---
INITIAL ROUNDS COMPLETED. PT DENIES ANY DISCOMFORT. CALL LIGHT WITHIN REACH.
--- NOTE | 2019-08-11 23:10 | NUR ---
ASSESSMENT COMPLETED AT 1950 HRS. PT DENIED ANY DISCOMFORT. IV TO RFA WITH 1/2NS AT 50CC/HR. IV PATENT. LUNGS ESSENTIALLY CTA. SALCEDO. BP ELEVATED 182/99. SB PER CM HR 57. APRESOLINE 10MG SIVP GIVEN AT 2114. BP RECHECKED AT 2230 HRS WITH 175/93. PT CURRENTLY WATCHING TV. SR UP X2, CALL LIGHT WITHIN REACH.
[2019-08-12] VITALS: BP 175/93
--- NOTE | 2019-08-12 01:20 | NUR ---
PT RESTING WITH EYES CLOSED. RESP EVEN AND REGULAR. SR UP X2, CALL LIGHT WITHIN REACH.
--- NOTE | 2019-08-12 01:21 | NUR ---
PT RESTING WITH EYES CLOSED. RESP EVEN AND REGULAR. SR UP X2, CALL LIGHT WITHIN REACH.
--- NOTE | 2019-08-12 03:17 | NUR ---
PT RESTING WITH EYES CLOSED. RESP EVEN AND REGULAR. SR UP X2, CALL LIGHT WITHIN REACH.
[2019-08-12 04:00] VITALS: BP 142/89
--- NOTE | 2019-08-12 04:09 | NUR ---
PT RESTING WITH EYES CLOSED. RESP EVEN AND REGULAR. SR UP X2,CALL LIGHT WITHIN REACH.
[2019-08-12 05:36] LABS: BASOPHILS 0.2 % (0-2); HEMATOCRIT 43.7 % (42.0-54.0); HEMOGLOBIN 14.6 g/dL (13.5-17.5); IMMATURE GRANULOCYTES 0.2 % (0-5); LYMPHOCYTES 17.4 % (15-50); MCH 30.9 pg (26.0-34.0); MCHC 33.4 g/dL (31.0-37.0); MCV 92.4 fL (80.0-100.0); MEAN PLATELET VOLUME 13.8 fL (7.4-10.4); MONOCYTES 5.6 % (2-11); NEUTROPHILS 75.6 % (40-80); PLATELET COUNT 200 10x3/uL (130-400); RBC 4.73 10x6/uL (4.20-6.10); RDW 13.6 % (11.5-14.5)
[2019-08-12 05:42] LABS: WBC 12.5 10x3/uL (4.8-10.8)
[2019-08-12 05:49] LABS: CALC OSMOLALITY 277 mosm/kg (275-300); CALCIUM 9.4 mg/dL (8.5-10.1); CARBON DIOXIDE 26.5 mmol/L (21.0-32.0); CHLORIDE - SERUM 104 mmol/L (98-107); GLUCOSE 101 mg/dL (74-106); MAGNESIUM - SERUM 1.9 mg/dL (1.8-2.4); PHOSPHOROUS 3.3 mg/dL (2.5-4.9); POTASSIUM - SERUM 3.9 mmol/L (3.5-5.1); SODIUM 139 mmol/L (136-145); UREA NITROGEN 13 mg/dL (7-18); eGFR NON AFRICAN AMERICAN 81 mL/min (90-120)
--- NOTE | 2019-08-12 06:15 | NUR ---
VSS THIS AM. SB/SR PER CM. PT DENIED ANY DISCOMFORT. NEEDS MET; WILL CONTINUE TO MONITOR.
--- NOTE | 2019-08-12 07:39 | NUR ---
AWAKE AND ALERT. RIGHT FA IV WITH NS AT 50. TELEMERTY SHOWS SR AT 75. UP AB CHUYITA. DENIES ANY NEEDS. DENIES ANY SYNCOPE, WILL MONITOR
[2019-08-12 09:00] VITALS: BP 135/101
[2019-08-12 09:19] VITALS: BP 148/93; BP 163/94
--- NOTE | 2019-08-12 13:00 | NUR ---
I have reviewed this patient and I concur with the Shift Assessment completed by the Licensed Practical Nurse today this shift.
--- NOTE | 2019-08-12 13:02 | NUR ---
PT DISCHARGED. IV DCD WITH TIP INTACK. INSTRUCTIONS GIVEN TO PT. TO PRIVATE CAR PER WHEELCHAIR.
--- NOTE | 2019-08-13 09:44 | MORECARE ---
CASE MANAGEMENT DISCHARGE SUMMARY PATIENT: STANISLAV LOMAS UNIT: [id number] ADM DATE: 08/10/19 AGE: 63 : 59 SEX: M ROOM/BED: D.9862 AUTHOR: MELANY,DOC PHYSICIAN: REFERRING PHYSICIAN: SHAVON CABA MD DATE OF SERVICE: 08/13/19 Discharge Plan Patient Name: STANISLAV LOMAS Facility: [facility]:[place] : 1955 Planned Disposition: Home Anticipated Discharge Date: 08/12/19 Discharge Date: 08/12/2019 Expected LOS: 2 Initial Reviewer: [email or web address] Initial Review Date: 08/10/2019 Generated: 08/13/19 10:44 am Comments DCP- Discharge Planning Updated by BRYANT: Isaac Yates on 08/10/19 3:[address] Patient Name: STANISLAV LOMAS Admission Status: Urgent Accout number: [id number] Admission Date: 08-10-2019 : 1955 Admission Diagnosis: Attending: SHAVON CABA Current LOS: 1 Anticipated DC Date: Planned Disposition: Home Primary Insurance[facility] Discharge Planning Comments: CM RECEIVED DISCHARGE PLANNING ORDER, MET WITH PT IN ROOM TO DISCUSS DISCHARGE PLANNING AND NEEDS. PT REPORTS LIVING AT HOME INDEPENDENTLY WITH HIS MOM AND DAD. PT HAS BLOOD PRESSURE MACHINE WITH NO MEDICAL EQUIPMENT PROVIDER PREFERENCE. PT HAS NO OUTSIDE SERVICES ASSISTING IN THE HOME. CM DISCUSSED AVAILABILITY OF HOME HEALTH, REHAB SERVICES AND MEDICAL EQUIPMENT. PT DENIES DISCHARGE NEEDS, REPORTS HIS MOM WILL PICK HIM UP FOR DISCHARGE HOME. PT PLANS TO DISCHARGE HOME WITH HIS PARENTS. PT HAS NO ANTICIPATED DISCHARGE NEEDS. FAMILY TO TRANSPORT HOME AT DISCHARGE. CM TO FOLLOW AND ASSIST IF NEEDED. Mat Repairer: Isaac Yates DCPIA - Discharge Planning Initial Assessment Updated by [email or web address]: Isaac Yates on 08/10/19 4:46 pm * Is the patient Alert and Oriented? Yes * How many steps to enter\exit or inside your home? * PCP DR. AVILES * Pharmacy [facility], [place] * Preadmission Environment Home with Family * ADLs Independent * Equipment Other * Other Equipment BLOOD PRESSURE MACHINE NO MEDICAL EQUIPMENT PROVIDER PREFERENCE * List name and contact numbers for known caregivers / representatives who currently or will assist patient after discharge: JEYSON LOMAS, MOTHER, * Verbal permission to speak to the caregivers and representatives has been obtained from the patient. N/A * Community resources currently utilized Other * Please name any agencies selected above. NONE * Additional services required to return to the preadmission environment? No * Can the patient safely return to the preadmission environment? Yes * Has this patient been hospitalized within the prior 30 days at any hospital? No Last DP export: 08/10/19 3:52 Patient Name: STANISLAV LOMAS Page 40730 at 0944 All edits/amendments must be made on the electronic document DICTATION DATE: 08/13/19943 MONTESSORI TEACHER: ALVA 08/13/19943 RPT#: [id number] DC DATE:08/12/19 STATUS: DIS IN [facility] [address] [place] [address] END OF REPORT
== END 2019-08-12 13:06 | disposition home or self-care (01) | DRG 312 ==
LOC: D.M2 15:32
PROVIDERS: ADMIT Internal Medicine Nephrology; ATTEND Internal Medicine Nephrology
DX: R55 Syncope and collapse (principal); E87.0 Hyperosmolality and hypernatremia; F17.213 Nicotine dependence, cigarettes, with withdrawal; I10 Essential (primary) hypertension; I25.10 Atherosclerotic heart disease of native coronary artery without angina pectoris; K21.9 Gastro-esophageal reflux disease without esophagitis; D64.9 Anemia, unspecified